=== PATIENT | female | born 1950 | race Caucasian/White ===

== ENCOUNTER → 2023-09-18 07:12 | Outpatient (REF) | payer MEDICARE, OTHER, SELFPAY | LOC: DHCBC HW 07:12 | PROVIDERS: ATTENDING PHYSICIAN Nurse Practitioner; FAMILY PHYSICIAN Family Medicine | DX: R07.89 Other chest pain (principal) | CPT/HCPCS: 93306 ==

== ENCOUNTER → 2023-09-19 07:43 | Outpatient (REF) | payer MEDICARE, OTHER, SELFPAY | LOC: DHCBC/DCA 07:43 | PROVIDERS: ATTENDING PHYSICIAN Nurse Practitioner; FAMILY PHYSICIAN Family Medicine | DX: R07.89 Other chest pain (principal) | CPT/HCPCS: 78452; 93017; A9500; J2785 ==

== ENCOUNTER → 2023-10-16 14:13 | Outpatient (REF) | payer MEDICARE, OTHER, SELFPAY | LOC: PAVMRI 14:13 | PROVIDERS: ATTENDING PHYSICIAN Podiatrist Foot & Ankle Surgery; FAMILY PHYSICIAN Family Medicine | DX: G57.62 Lesion of plantar nerve, left lower limb (principal) | CPT/HCPCS: 73718 ==

== ENCOUNTER → 2023-11-03 07:35 | Outpatient (REF) | payer MEDICARE, OTHER, SELFPAY | LOC: EMG 07:35 | PROVIDERS: ATTENDING PHYSICIAN Podiatrist Foot & Ankle Surgery; FAMILY PHYSICIAN Family Medicine | DX: R20.0 Anesthesia of skin (principal); M48.00 Spinal stenosis, site unspecified; R20.9 Unspecified disturbances of skin sensation | CPT/HCPCS: 95886; 95911 ==

== ENCOUNTER → 2024-02-11 10:11 | Outpatient (REF) | payer MEDICARE, OTHER, SELFPAY | LOC: HWRAD 10:11 | PROVIDERS: ATTENDING PHYSICIAN Family Medicine | DX: M25.561 Pain in right knee (principal); Z96.651 Presence of right artificial knee joint | CPT/HCPCS: 73564 ==

== ENCOUNTER 2024-04-16 06:26 | Day surgery (SDC) | payer MEDICARE, OTHER, SELFPAY ==
[2024-04-16 10:11] LABS: Glucose - Point of Care 131 mg/dl (70-99)
== END 2024-04-16 11:43 | disposition home or self-care (01) ==
LOC: GI 06:26
PROVIDERS: ATTENDING PHYSICIAN Internal Medicine; FAMILY PHYSICIAN Family Medicine
DX: R13.10 Dysphagia, unspecified (principal); K44.9 Diaphragmatic hernia without obstruction or gangrene
CPT/HCPCS: 43239; 88305; 82962

== ENCOUNTER → 2024-05-04 10:17 | Outpatient (REF) | payer MEDICARE, OTHER, SELFPAY | LOC: EMG 10:17 | PROVIDERS: ATTENDING PHYSICIAN Orthopaedic Surgery; FAMILY PHYSICIAN Family Medicine | DX: R20.0 Anesthesia of skin (principal) | CPT/HCPCS: 95886; 95911 ==

== ENCOUNTER → 2024-07-26 10:03 | Outpatient (REF) | payer MEDICARE, OTHER, SELFPAY | LOC: HWRAD 10:03 | PROVIDERS: ATTENDING PHYSICIAN Nurse Practitioner Family; FAMILY PHYSICIAN Family Medicine | DX: K63.5 Polyp of colon (principal) | CPT/HCPCS: 74261 ==

== ENCOUNTER → 2024-09-24 11:19 | Outpatient (REF) | payer MEDICARE, OTHER, SELFPAY | LOC: DHSLP 11:19 | PROVIDERS: ATTENDING PHYSICIAN Family Medicine | DX: G47.33 Obstructive sleep apnea (adult) (pediatric) (principal) | CPT/HCPCS: 95806 ==

== ENCOUNTER → 2024-11-03 10:25 | Outpatient (REF) | payer MEDICARE, OTHER, SELFPAY | LOC: HWRAD 10:25 | PROVIDERS: ATTENDING PHYSICIAN Family Medicine | DX: M81.0 Age-related osteoporosis without current pathological fracture (principal) | CPT/HCPCS: 77080 ==

== ENCOUNTER 2025-04-27 06:24 | Day surgery (SDC) | payer MEDICARE, OTHER, SELFPAY ==
[2025-04-27 07:18] LABS: Glucose - Point of Care 147 mg/dl (70-99)
== END 2025-04-27 08:54 | disposition home or self-care (01) ==
LOC: GI 06:24
PROVIDERS: ATTENDING PHYSICIAN Surgery; FAMILY PHYSICIAN Family Medicine
DX: K57.32 Diverticulitis of large intestine without perforation or abscess without bleeding (principal); R93.3 Abnormal findings on diagnostic imaging of other parts of digestive tract; K57.30 Diverticulosis of large intestine without perforation or abscess without bleeding
CPT/HCPCS: 45330; 82962